=== PATIENT | male | born 1990 | race Caucasian/White ===

== ENCOUNTER → 2017-02-11 | Outpatient (CLI) | payer OTHER ==
--- NOTE | 2017-02-11 14:46 | DIAGNOSTIC IMAGING REPORT ---
RIGHT TIBIA/FIBULA 2 VIEWS ROUTINE CLINICAL HISTORY: Right lower leg pain. COMPARISON: None FINDINGS: No displaced fracture of the right tibia or fibula is identified. No osseous lesion is identified. On lateral projection, there is apparent mild periosteal thickening along the posterior mid to distal shaft of the right tibia. IMPRESSION: Subtle periosteal/cortical thickening of the posterior mid to distal shaft of the right tibia. This finding is of questionable clinical significance and could be chronic. However, a stress fracture could appear similar. Electronically signed by: Reji Bergman M.D. 02/11/2017 2:44 PM Dictated Date/Time: 02/11/2017 2:36 PM
== END | disposition home or self-care (01) ==
LOC: C.RAD1850 14:26
PROVIDERS: ATTEND Nurse Practitioner Family
DX: M79.661 Pain in right lower leg (principal)